=== PATIENT | female | born 1980 | race Caucasian/White ===

== ENCOUNTER 2023-06-24 07:55 | Day surgery (SDC) | payer MEDICAID ==
[~2023-06-24] VITALS: Ht 152.4 cm; Wt 61.2 kg
[2023-06-24] MEDS ORDERED: MEPERIDINE 100 MG INJ. 100 MG/ML VIAL ONE (08:14)
[2023-06-24] MEDS ORDERED: MIDAZOLAM HCL 5 MG/5 ML VIAL ONE ×2 (08:15→09:29)
[2023-06-24] MEDS ORDERED: DIPHENHYDRAMINE INJ 50 MG/ML VIAL ONE (09:27)
[2023-06-24 12:45] VITALS: O2SAT 100
[2023-06-24 16:14] VITALS: BP_SYST 141; PULSE 99; RESP 17
== END 2023-06-24 10:35 | disposition home or self-care (01) ==
LOC: SDS 07:55 → SMU 07:57 → SDS 10:35
PROVIDERS: ATTEND Internal Medicine Gastroenterology
DX: K21.9 Gastro-esophageal reflux disease without esophagitis (principal); K29.50 Unspecified chronic gastritis without bleeding; R10.10 Upper abdominal pain, unspecified; Z90.710 Acquired absence of both cervix and uterus; Z79.899 Other long term (current) drug therapy
CPT/HCPCS: 43239; 99152; 87081; 36415; 88305; 88312; 88313; J1200; J2250; J2175